=== PATIENT | female | born 1990 ===

== ENCOUNTER 2022-08-11 09:48 | Inpatient (IN) | payer OTHER ==
[~2022-08-11] VITALS: Ht 157.5 cm; Wt 65.8 kg
== END 2022-08-23 11:49 | disposition home or self-care (01) | DRG 807 ==
LOC: LDR 08-21 01:54 → OB/GYN 08-21 01:54
PROVIDERS: ADMIT Obstetrics & Gynecology; ATTEND Obstetrics & Gynecology
PROC: 10E0XZZ Delivery of Products of Conception, External Approach (ICD-10-PCS; principal; 2022-08-21)
PROC: 0HQ9XZZ Repair Perineum Skin, External Approach (ICD-10-PCS; 2022-08-21)
PROC: 4A1HXCZ Monitoring of Products of Conception, Cardiac Rate, External Approach (ICD-10-PCS; 2022-08-21)
DX: O70.0 First degree perineal laceration during delivery (principal); Z37.0 Single live birth; Z3A.38 38 weeks gestation of pregnancy; Z20.822 Contact with and (suspected) exposure to COVID-19